=== PATIENT | female | born 1950 | race Caucasian/White ===

== ENCOUNTER 2021-03-11 00:18 | Emergency (ER) | payer OTHER, MEDICARE ==
[2021-03-11] MEDS ORDERED: MAGNESIUM SULFATE IN WATER 2 GM/50 ML IVPB IVPB ONE (00:25)
[2021-03-11 00:39] VITALS: BP 122/55; PULSE 68; BMI 25.0
[2021-03-11] MEDS ORDERED: traMADol HCL 50 MG TABLET PO ONE (01:15)
[2021-03-11] MEDS ORDERED: traMADol HCL 50 MG TABLET ONE (01:24)
[2021-03-11] MEDS ORDERED: ONDANSETRON *ODT* 4 MG TABLET SL ONE (01:48)
[2021-03-11] MEDS ORDERED: ONDANSETRON *ODT* 4 MG TABLET ONE (01:50)
[2021-03-11] MEDS ORDERED: DIPHTH,PERTUSS(ACELL),TET 0.5 ML DISP.SYRIN IM ONE ×2 (02:04→02:35)
[2021-03-11] MEDS ORDERED: morphine SULFATE IMMEDIATE RELEASE 30 MG TAB PO ONE (02:46)
[2021-03-11] MEDS ORDERED: morphine SULFATE IMMEDIATE RELEASE 30 MG TAB ONE (02:49)
== END 2021-03-11 05:01 | disposition home or self-care (01) ==
LOC: JER 00:18
PROC: 3E0234Z Introduction of Serum, Toxoid and Vaccine into Muscle, Percutaneous Approach (ICD-10-PCS; principal; 2021-03-11)
DX: S42.292A Other displaced fracture of upper end of left humerus, initial encounter for closed fracture (principal); M25.512 Pain in left shoulder; W01.0XXA Fall on same level from slipping, tripping and stumbling without subsequent striking against object, initial encounter
CPT/HCPCS: 70450-TC; 70486-TC; 72125-TC; 73030-TC-LT-FY; 73060-TC-LT-FY; 90471; 90715; 99285-25; Q0162